=== PATIENT | female | born 2000 | race Caucasian/White ===

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

== ENCOUNTER 2021-04-23 13:05 | Emergency (ER) | payer OTHER ==
[~2021-04-23] VITALS: Wt 47.2 kg
[~2021-04-23 13:05] MED LIST changes: +AMOXICILLI400 MG/51 PO; +ZOFRAN4 MG PO
[2021-04-23 13:10] VITALS: BP 119/78
[2021-04-23] MEDS ORDERED: ACYCLOVIR400 MG PO (13:29)
== END 2021-04-23 13:57 | disposition home or self-care (01) ==
LOC: ED 13:05
DX: B00.1 Herpesviral vesicular dermatitis (principal)

== ENCOUNTER 2021-06-10 18:05 | Emergency (ER) | payer OTHER ==
[~2021-06-10] VITALS: Wt 49.9 kg
[~2021-06-10 18:05] MED LIST changes: +ACYCLOVIR400 MG PO
[2021-06-10 18:22] VITALS: BP 132/66
== END 2021-06-10 22:59 | disposition left against medical advice (07) ==
LOC: ED 18:05
DX: M62.838 Other muscle spasm (principal); Z53.21 Procedure and treatment not carried out due to patient leaving prior to being seen by health care provider

== ENCOUNTER 2022-04-06 11:07 | Emergency (ER) | payer OTHER ==
[~2022-04-06] VITALS: Ht 152.4 cm; Wt 45.4 kg
[2022-04-06 11:13] VITALS: BP 116/68
[2022-04-06] MEDS ORDERED: AMOXICILLIN500 M2 PO (13:35)
== END 2022-04-06 13:48 | disposition home or self-care (01) ==
LOC: ED 11:07
DX: J02.0 Streptococcal pharyngitis (principal); Z20.822 Contact with and (suspected) exposure to COVID-19; Z79.899 Other long term (current) drug therapy; Z98.890 Other specified postprocedural states

== ENCOUNTER 2022-07-16 09:56 | Emergency (ER) | payer OTHER ==
[~2022-07-16] VITALS: Ht 152.4 cm; Wt 49.9 kg
[~2022-07-16 09:56] MED LIST changes: +AMOXICILLIN500 M2 PO
[2022-07-16 10:18] VITALS: BP 101/55
[2022-07-16 11:22] LABS: BASO # 0.1 10*3/uL (0.0-0.1); BASO % 0.4 % (0.0-1.0); EOS % 0.3 % (1.0-4.0); LYMPH # 0.7 10*3/uL (1.3-4.4); LYMPH % 6.1 % (27.0-41.0); MEAN CELL VOLUME 90.3 fl (81.0-99.0); MEAN CORPUSCULAR HGB 29.4 pg (27.0-31.0); MEAN CORPUSCULAR HGB CONC 32.5 g/dl (33.0-37.0); MEAN PLATELET VOLUME 10.9 fl (9.6-12.3); MONO # 0.5 10*3/uL (0.1-1.0); MONO % 4.8 % (3.0-9.0); NEUT # 9.9 10*3/uL (2.3-7.9); PLATELET COUNT AUTOMATED 297 10*3/uL (130-400); RED BLOOD COUNT 4.87 10*6/uL (4.10-5.10); RED CELL DISTRI WIDTH 12.5 % (0-14.5); WHITE BLOOD COUNT 11.3 10*3/uL (4.8-10.8)
[2022-07-16 11:30] LABS: BILIRUBIN Negative (Negative); BLOOD Negative (Negative); CLARITY Clear (Clear); COLOR Yellow (Yellow); GLUCOSE Negative (Negative); KETONE Trace (Negative); LEUKO ESTERASE Trace (Negative); NITRITE Negative (Negative); SPECIFIC GRAVITY 1.025 (1.001-1.030)
[2022-07-16 11:46] LABS: ALKALINE PHOSPHATASE 84 U/L (45-117); BUN 12 mg/dl (7-24); CHLORIDE 105 mmol/L (98-107); CREATININE 0.66 mg/dL (0.55-1.02); LIPASE 124 U/L (73-393); SGPT/ALT 22 U/L (12-78); SODIUM 137 mmol/L (136-145); TOTAL PROTEIN 7.8 gm/dL (6.4-8.2)
[2022-07-16 11:49] LABS: B-hCG (QUALITATIVE) NEGATIVE (NEGATIVE)
[2022-07-16 11:50] LABS: POTASSIUM 3.8 mmol/L (3.5-5.1)
[2022-07-16 11:51] LABS: SGOT/AST 20 IU/L (3-35)
[2022-07-16 11:54] LABS: BACTERIA TRACE; RBC 0-2 rbc/hpf (0-2)
[2022-07-16] MEDS ORDERED: ONDANSETRON HYDR4 M1 PO (12:13)
== END 2022-07-16 12:15 | disposition home or self-care (01) ==
LOC: ED 09:56
PROVIDERS: Emergency Medicine
DX: R11.2 Nausea with vomiting, unspecified (principal); R10.13 Epigastric pain; Z98.890 Other specified postprocedural states